=== PATIENT | male | born 1955 ===

== ENCOUNTER 2020-12-05 19:59 | Observation (INO) ==
[2020-12-05] MEDS ORDERED: DIPH/TET/ACEL PERT BOOSTER VACCINE 0.5 ML VIAL IM ONE (20:15)
[2020-12-05] MEDS ORDERED: HYDROmorphone 2 MG/1 ML VIAL IV STA ×2 (20:15→22:38)
[2020-12-05] MEDS ORDERED: SODIUM CHLORIDE 0.9% 1,000 ML IV STA (20:15)
[2020-12-05] MEDS ORDERED: ONDANSETRON 4 MG/2 ML VIAL IV STA (20:15)
[2020-12-05] MEDS ORDERED: KETOROLAC 30 MG/1 ML VIAL IV STA (20:15)
[2020-12-05 20:26] LABS: Basophils % 0.4 % (0.0-0.8); Eosinophils # 0.3 10*3/uL (0.0-0.87); Eosinophils % 3.2 % (0.00-10.9); Hematocrit 42.3 VOL% (42.0-52.0); Hemoglobin 14.9 GM/DL (14.0-18.0); Immature Granulocytes % 0.3 %; Immature Granulocytes Absolute 0.03 #; Lymphocytes # 4.2 10*3/uL (1.4-4.0); Lymphocytes % 41.9 % (21.2-54.2); Mean Corpuscular HGB Conc 35.2 GM/DL (32-36); Mean Corpuscular Volume 88.9 FL (87-102); Mean Platelet Volume 9.7 FL (9.6-12.0); Monocytes % 9.1 % (1.7-12.7); Neutrophils % 45.1 % (38.7-73.9); Platelet Count 238 T/CUMM (130-400); Red Blood Count 4.76 MC/CUMM (3.8-5.5); Red Cell Distribution Width 12.7 % (9.3-17.3)
[2020-12-05 20:35] LABS: PT Patient Result 10.9 SECS (10.5-12.0)
[2020-12-05 20:47] LABS: Eosinophils 4 % (0-10); Lymphocytes 43 % (20-55); Segmented Neutrophils 46 % (50-85); Total Cells Counted 100
[2020-12-05 20:48] LABS: Platelet Estimate Adequate; Reactive Lymphocytes Few
[2020-12-05 21:03] LABS: Alanine Aminotransferase 61 U/L (16-61); Albumin 4.2 G/DL (3.4-5.0); Alkaline Phosphatase 71 U/L (45-117); Aspartate Amino Transferase 41 U/L (0-37); Blood Urea Nitrogen 17 MG/DL (7-18); CKMB % 1.9 %; Calcium 8.9 MG/DL (8.5-10.1); Carbon Dioxide 27 MMOL/L (21-32); Estimated Glom Filtration Rate 93 ML/MIN; Glucose 95 MG/DL (74-106); Osmolality,Calculated 280.4 MOS/KG (273-304); Potassium 3.6 MMOL/L (3.5-5.1); Sodium 140 MMOL/L (136-145); Total Protein 7.1 G/DL (6.4-8.2)
[2020-12-05] MEDS ORDERED: HYDROmorphone 2 MG/1 ML VIAL IV PRN (23:10)
[2020-12-05] MEDS ORDERED: ACETAMINOPHEN 325 MG TABLET PO PRN (23:10)
[2020-12-05] MEDS: SODIUM CHLORIDE 0.9% 1,000 ML IV SCH (23:54)
[2020-12-06] MEDS: CLINDAMYCIN INJ 600 MG/50 ML PREMIX IV SCH ×3 (04:35→21:19)
[2020-12-06 05:32] LABS: Basophils % 0.2 % (0.0-0.8); Eosinophils # 0.1 10*3/uL (0.0-0.87); Eosinophils % 0.5 % (0.00-10.9); Hematocrit 38.5 VOL% (42.0-52.0); Hemoglobin 13.3 GM/DL (14.0-18.0); Immature Granulocytes % 0.4 %; Immature Granulocytes Absolute 0.04 #; Lymphocytes # 2.2 10*3/uL (1.4-4.0); Lymphocytes % 19.6 % (21.2-54.2); Mean Corpuscular HGB Conc 34.5 GM/DL (32-36); Mean Corpuscular Volume 91.9 FL (87-102); Mean Platelet Volume 9.3 FL (9.6-12.0); Neutrophils % 70.3 % (38.7-73.9); Platelet Count 176 T/CUMM (130-400); Red Blood Count 4.19 MC/CUMM (3.8-5.5); White Blood Count 11.2 T/CUMM (4-12)
[2020-12-06 05:43] LABS: INR 1.1; PT Patient Result 11.8 SECS (10.5-12.0)
[2020-12-06] MEDS: ONDANSETRON 4 MG/2 ML VIAL IV PRN ×2 (08:26→21:23)
[2020-12-06] MEDS ORDERED: MELOXICAM 15 MG PO SCH (08:30)
[2020-12-06] MEDS ORDERED: predniSONE 20 MG TABLET PO SCH (08:30)
[2020-12-06] MEDS: atenoloL 25 MG TABLET PO SCH ×2 (10:09→21:19)
[2020-12-06] MEDS: PANTOPRAZOLE 40 MG TABLET PO SCH (10:09)
[2020-12-06] MEDS: SODIUM CHLORIDE 0.9% 1,000 ML IV SCH ×2 (12:32→19:48)
[2020-12-06] MEDS ORDERED: CROTALIDAE SNAKE ANTIVENOM 4 VIAL in SODIUM CHLORIDE 0.9% 250 ML IV STA (15:38)
[2020-12-06] MEDS ORDERED: CROTALIDAE SNAKE ANTIVENOM IV PRN (15:39)
[2020-12-06] MEDS ORDERED: SODIUM CHLORIDE IV PRN (15:39)
[2020-12-06] MEDS ORDERED: diphenhydrAMINE CAP 25 MG CAPSULE PO ONE (15:44)
[2020-12-07] MEDS: SODIUM CHLORIDE 0.9% 1,000 ML IV SCH ×3 (00:46→19:25)
[2020-12-07] MEDS: CLINDAMYCIN INJ 600 MG/50 ML PREMIX IV SCH ×3 (04:10→20:22)
[2020-12-07 05:44] LABS: Basophils % 0.4 % (0.0-0.8); Eosinophils # 0.4 10*3/uL (0.0-0.87); Eosinophils % 5.2 % (0.00-10.9); Hematocrit 39.4 VOL% (42.0-52.0); Hemoglobin 13.2 GM/DL (14.0-18.0); Immature Granulocytes % 0.4 %; Immature Granulocytes Absolute 0.03 #; Lymphocytes # 2.4 10*3/uL (1.4-4.0); Lymphocytes % 27.7 % (21.2-54.2); Mean Corpuscular HGB Conc 33.5 GM/DL (32-36); Mean Platelet Volume 10.1 FL (9.6-12.0); Neutrophils % 57.3 % (38.7-73.9); Platelet Count 162 T/CUMM (130-400); Red Blood Count 4.19 MC/CUMM (3.8-5.5); Red Cell Distribution Width 13.2 % (9.3-17.3); White Blood Count 8.5 T/CUMM (4-12)
[2020-12-07 05:54] LABS: PT Patient Result 10.9 SECS (10.5-12.0); Partial Thromboplastin Time 24.8 SECS (23.9-33.8)
[2020-12-07 06:18] LABS: Calcium 8.3 MG/DL (8.5-10.1); Osmolality,Calculated 282.1 MOS/KG (273-304); Potassium 4.6 MMOL/L (3.5-5.1)
[2020-12-07] MEDS: atenoloL 25 MG TABLET PO SCH ×2 (09:14→20:24)
[2020-12-07] MEDS: PANTOPRAZOLE 40 MG TABLET PO SCH (09:14)
[2020-12-08] MEDS: SODIUM CHLORIDE 0.9% 1,000 ML IV SCH (03:40)
[2020-12-08] MEDS: CLINDAMYCIN INJ 600 MG/50 ML PREMIX IV SCH (03:41)
[2020-12-08] MEDS: atenoloL 25 MG TABLET PO SCH (08:19)
[2020-12-08] MEDS: PANTOPRAZOLE 40 MG TABLET PO SCH (08:19)
[2020-12-08 08:27] VITALS: BP 148/88
== END 2020-12-08 10:10 | disposition home or self-care (01) ==
LOC: N.EDINP 19:59 → N.ED 19:59 → N.EDINP 22:40 → N.4E 23:08
PROVIDERS: ADMIT Surgery; ATTEND Surgery